=== PATIENT | male | born 1945 | race Caucasian/White ===

== ENCOUNTER 2016-11-10 09:29 | Outpatient (CLI) | payer MEDICARE, BC ==
[2015-08-08 10:36] VITALS: BP 154/67
== END 2016-11-10 09:30 ==
LOC: LAB 09:29
PROVIDERS: ATTEND Radiology Radiation Oncology
DX: C61 Malignant neoplasm of prostate (principal)
CPT/HCPCS: 36415; 84153

== ENCOUNTER 2017-08-27 09:47 | Outpatient (CLI) | payer MEDICARE, BC ==
[2015-08-08 10:36] VITALS: BP 154/67
[2017-08-27 10:54] LABS: eGFR (African) > 60; eGFR (Non-African) > 60
== END 2017-08-27 09:50 ==
LOC: LAB 09:47
PROVIDERS: ATTEND Family Medicine
DX: E78.5 Hyperlipidemia, unspecified (principal); R73.9 Hyperglycemia, unspecified
CPT/HCPCS: 36415; 80053; 80061; 83036

== ENCOUNTER 2018-09-09 11:08 | Outpatient (CLI) | payer MEDICARE, OTHER ==
[2015-08-08 10:36] VITALS: BP 154/67
[2018-09-09 12:27] LABS: eGFR (Non-African) > 60
== END 2018-09-09 11:10 ==
LOC: LAB 11:08
PROVIDERS: ATTEND Family Medicine
DX: R73.9 Hyperglycemia, unspecified (principal); E78.5 Hyperlipidemia, unspecified
CPT/HCPCS: 36415; 80053; 80061; 83036; 84153

== ENCOUNTER 2019-07-25 08:58 | Outpatient (CLI) | payer MEDICARE, OTHER ==
[2015-08-08 10:36] VITALS: BP 154/67
[2019-07-25 09:45] LABS: A1C 5.9 % (<5.7); HDL 46 mg/dL (>40); eGFR (Non-African) > 60
== END 2019-07-25 09:03 ==
LOC: LAB 08:58
PROVIDERS: ATTEND Family Medicine
DX: E78.5 Hyperlipidemia, unspecified (principal); R73.9 Hyperglycemia, unspecified
CPT/HCPCS: 36415; 80053; 80061; 83036

== ENCOUNTER 2019-08-05 15:11 | Outpatient (CLI) | payer MEDICARE ==
[2015-08-08 10:36] VITALS: BP 154/67
== END 2019-08-05 15:16 ==
LOC: LABRHC 15:11
PROVIDERS: ATTEND Family Medicine
DX: L82.1 Other seborrheic keratosis (principal)

== ENCOUNTER 2019-09-18 08:26 | Outpatient (CLI) | payer MEDICARE ==
[2015-08-08 10:36] VITALS: BP 154/67
== END 2019-09-18 08:31 ==
LOC: LAB 08:26
PROVIDERS: ATTEND Family Medicine
DX: Z12.5 Encounter for screening for malignant neoplasm of prostate (principal); E29.1 Testicular hypofunction
CPT/HCPCS: 36415; 84153; 84403

== ENCOUNTER 2019-09-20 14:27 | Emergency (ER) | payer MEDICARE ==
[2015-08-08 10:36] VITALS: BP 154/67
[2019-09-20] MEDS ORDERED: TETRACAINE 0.5% OPTH 5 ML BOTTLE OU ONE (14:35)
[2019-09-20] MEDS ORDERED: FLUORESCEIN SODIUM 1 STRIP TEST OU ONE (14:35)
--- NOTE | 2019-09-20 14:36 | ED Physician Documentation ---
Eye Problem - HISTORIAN Historian: patient - HPI Stated Complaint: right eye irritation Chief Complaint: Eye Problems Additional Information: Patient presents to ED with a 1 day history of right eye pain. 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 Today he woke up with right eye irritation. He has flushed the eye extensively with water, however, he still feels like something is in his eye. He denies visual changes or sensitivity to light Onset: days ago (1) Associated symptoms: itching, redness Location: right eye Severity: mild Apparent Injury: no Context: denies: foreign body Where: home - ROS CONST: no problems MS/SKIN/LYMPH: denies: weakness CVS/RESP: denies: chest pain EYES/ENT: denies: problems with vision GI/: denies: nausea NEURO: denies: headache - PAST HX Past History: none Allergies/Adverse Reactions: Allergies Allergy/AdvReac Type Severity Reaction Status Date / Time shell fish Allergy Intermediate Rash Uncoded 09/20/19 14:34 Home Medications: Ambulatory Orders Medication Instructions Recorded Neomycin/Polymyxin B/Dexametha 2 drop OP Q6 #1 bottle 09/20/19 [Rdjegs-Dwwhy-Qarnvhdw Eye Drop] - SOCIAL HX Smoking History: non-smoker Alcohol Use: none Drug Use: none - FAMILY HX Family History: none - VITAL SIGNS Vital Signs: Vital Signs Temp Pulse Resp BP Pulse Ox 154/67 08/08/15 11:33 - REVIEWED ASSESSMENTS Nursing Assessment Reviewed: Yes Vitals Reviewed: Yes ED Results Lab/Radiology - Orders Orders: ED Orders Category Date Time Status Fluorescein Sodium [Bioglo Test Strip] Med 09/20/19 14:35 Once 1 strip OU NOW ONE Tetracaine 0.5% Opth [Pontocaine Pf 0.5% Opth] Med 09/20/19 14:35 Once 2 drop OU NOW ONE Eye Problem Physical Exam - Physical Exam General Appearance: no acute distress, alert Examined with Slit Lamp: No Visual Acuity: see nursing assessment Eyelids: nml inspection Conjunctiva and Sclera: injected (R) Corneas: abrasion (R), fluorescein dye uptake (R), examined with fluorescein (R) EOM: intact Pupils: equal Skin: nml color, warm Neck/Back: nml inspection Respiratory: no resp distress CVS: reg rate & rhythm, heart sounds normal Abdomen: non-tender Neuro/Psych: oriented x3 Discharge Clincal Impression: Corneal abrasion, right Qualifiers: Encounter type: initial encounter Qualified Code(s): S05.01XA - Injury of conjunctiva and corneal abrasion without foreign body, right eye, initial encounter Prescriptions: Neomycin/Polymyxin B/Dexametha [Ruvvgn-Oyudi-Radjcoyk Eye Drop] 2 drop OP Q6 #1 bottle Referrals: Scott Brown MD [Primary Care Provider] - 2 Days Additional Instructions: 1. Eye drops to right eye every 6 hours x 7 days 2. Do not use visine or other drops while using antibiotic drops. Artificial tears ok 3. Follow up with PCP within 3 days 4. Return to ER for new or worsening symptoms Condition: Stable Disposition: 01 HOME, SELF-CARE Decision to Admit: NO Date of Decison to Admit: 09/20/19 Decision Time: 14:53
== END 2019-09-20 14:58 | disposition home or self-care (01) ==
LOC: ED 14:27
DX: S05.01XA Injury of conjunctiva and corneal abrasion without foreign body, right eye, initial encounter (principal); X58.XXXA Exposure to other specified factors, initial encounter
CPT/HCPCS: 99283; 99284